=== PATIENT | female | born 1940 | race Caucasian/White ===

== ENCOUNTER 2019-08-23 17:24 | Emergency (ER) | payer MEDICAID ==
[2019-08-23 17:43] VITALS: BP 187/72
--- NOTE | 2019-08-23 17:57 | Event Note ---
ED Screening Note Date of service: 08/23/19 Time: 17:54 ED Screening Note: Pt complains of weakness, vomiting, and diarrhea x 2 days This initial assessment/diagnostic orders/clinical plan/treatment(s) is/are subject to change based on patients health status, clinical progression and re-assessment by fellow clinical providers in the ED. Further treatment and workup at subsequent clinical providers discretion. Patient/guardian urged not to elope from the ED as their condition may be serious if not clinically assessed and managed. Initial orders include: labs CXR rapid flu
--- NOTE | 2019-08-23 19:17 | XRay Report ---
CHEST 1 VIEW INDICATION: chest pain. COMPARISON: None. FINDINGS: Support devices: None. Heart: Normal. Lungs/Pleura: There is no consolidation, effusion, or pneumothorax. Mild increased reticular markings are noted. These may be chronic. Lower airways disease or interstitial edema could have this appeara nce. IMPRESSION: 1. Mild increased interstitial markings, see above. Signer Name: eTj Davila MD Signed: 08/23/2019 7:13 PM Workstation Name: [id number]
[2019-08-23 19:42] LABS: Basophils # (Auto) 0.2 K/mm3 (0.0-0.1); Basophils % (Auto) 2.1 % (0.0-1.8); Eosinophils # (Auto) 0.3 K/mm3 (0.0-0.4); Eosinophils % (Auto) 2.3 % (0.0-4.3); Hematocrit 34.2 % (30.3-42.9); Hemoglobin 11.3 gm/dl (10.1-14.3); Lymphocytes # (Auto) 2.6 K/mm3 (1.2-5.4); Lymphocytes % (Auto) 23.5 % (13.4-35.0); Mean Corpuscular HGB Conc 33 % (30-34); Mean Corpuscular Volume 75 fl (79-97); Monocytes # (Auto) 0.8 K/mm3 (0.0-0.8); Monocytes % (Auto) 7.4 % (0.0-7.3); Platelet Count 328 K/mm3 (140-440); Red Blood Count 4.57 M/mm3 (3.65-5.03); Red Cell Distribution Width 13.2 % (13.2-15.2)
[2019-08-23 20:05] LABS: Albumin 3.5 g/dL (3.9-5); BUN/Creatinine Ratio 27; Blood Urea Nitrogen 24 mg/dL (7-17); Calcium 8.7 mg/dL (8.4-10.2); Hemolysis Index 3
[2019-08-23 20:24] LABS: Alanine Aminotransferase < 5 units/L (7-56)
== END 2019-08-24 01:00 | disposition left against medical advice (07) ==
LOC: ED 17:24
DX: R19.7 Diarrhea, unspecified (principal); Z53.21 Procedure and treatment not carried out due to patient leaving prior to being seen by health care provider
CPT/HCPCS: 36415; 71045; 80053; 83690; 84484; 85025

== ENCOUNTER 2019-08-26 17:07 | Inpatient (IN) | payer MEDICAID ==
[2019-08-26 19:56] LABS: Basophils # (Auto) 0.1 K/mm3 (0.0-0.1); Basophils % (Auto) 1.2 % (0.0-1.8); Eosinophils # (Auto) 0.2 K/mm3 (0.0-0.4); Eosinophils % (Auto) 1.4 % (0.0-4.3); Hematocrit 34.6 % (30.3-42.9); Hemoglobin 11.7 gm/dl (10.1-14.3); Lymphocytes # (Auto) 2.6 K/mm3 (1.2-5.4); Lymphocytes % (Auto) 22.3 % (13.4-35.0); Mean Corpuscular HGB Conc 34 % (30-34); Mean Corpuscular Volume 74 fl (79-97); Monocytes # (Auto) 0.9 K/mm3 (0.0-0.8); Monocytes % (Auto) 7.2 % (0.0-7.3); Platelet Count 329 K/mm3 (140-440); Red Blood Count 4.66 M/mm3 (3.65-5.03); Red Cell Distribution Width 12.9 % (13.2-15.2)
--- NOTE | 2019-08-26 20:02 | XRay Report ---
CHEST 1 VIEW INDICATION: AMS. COMPARISON: 08/23/2019 FINDINGS: Support devices: None. Heart: Normal. Lungs/Pleura: No acute pulmonary or pleural findings. IMPRESSION: 1. No acute findings, lungs are clear. Signer Name: Tej Davila MD Signed: 08/26/2019 7:57 PM Workstation Name: [id number]
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
[2019-08-26 20:17] LABS: Albumin 3.6 g/dL (3.9-5); BUN/Creatinine Ratio 21; Blood Urea Nitrogen 17 mg/dL (7-17); Calcium 8.7 mg/dL (8.4-10.2); Hemolysis Index 4
[2019-08-26 20:19] LABS: Alanine Aminotransferase < 5 units/L (7-56); Bilirubin,Direct < 0.2 mg/dL (0-0.2)
--- NOTE | 2019-08-26 20:54 | Cat Scan Report ---
CT head/brain wo con INDICATION: AMS. TECHNIQUE: Routine CT head without contrast. All CT scans at this location are performed using CT dos e reduction for ALARA by means of automated exposure control. COMPARISON: None. FINDINGS: BRAIN / INTRACRANIAL CONTENTS: There is an area of cortical and subcortical hypoattenuation in the le ft middle and inferior frontal gyri suggestive of acute to subacute infarct. There is no associated h emorrhage or adverse mass effect. There is no acute hemorrhage, midline shift, or herniation. There i s no other acute abnormality. ORBITS: No significant abnormality of visualized orbits. SINUSES / MASTOIDS: No significant abnormality of visualized sinuses and mastoid air cells. ADDITIONAL FINDINGS: None. IMPRESSION: 1. Acute to early subacute infarct in the left middle and inferior frontal gyri without associated he morrhage or adverse mass effect. Findings discussed with Dr. Noble at 7:48 PM central time on 08/26/2019. Signer Name: Eren Sheikh MD Signed: 08/26/2019 8:49 PM Workstation Name: [id number]
[2019-08-26 21:44] LABS: Bacteria,Urine 2+ /HPF (Negative); Bilirubin,Urine NEG (Negative); Blood,Urine SM (Negative); Color,Urine Yellow (Yellow); Mucus,Urine FEW /HPF; Protein,Urine <15 mg/dL mg/dL (Negative); Urobilinogen,Urine < 2.0 mg/dL (<2.0)
[2019-08-26 21:50] LABS: Amphetamine Screen,Urine PRESUMPTIVE NEGATIVE; Benzodiazepines Screen,Urine PRESUMPTIVE NEGATIVE; Cannabinoid Screen,Urine PRESUMPTIVE NEGATIVE; Cocaine Screen,Urine PRESUMPTIVE NEGATIVE; Methadone Screen,Urine PRESUMPTIVE NEGATIVE; Opiate Screen,Urine PRESUMPTIVE NEGATIVE
[2019-08-26] MEDS ORDERED: cefTRIAXone/NS 1 GM/50 ML 1 GM/50 ML BAG IV ONE (22:02)
[2019-08-26] MEDS ORDERED: ASPIRIN 300 MG RECT SUPP PR ONE (22:35)
[2019-08-26] MEDS ORDERED: hydrALAZINE 20 MG/1 ML INJ ONE (23:00)
[2019-08-26] MEDS ORDERED: hydrALAZINE 20 MG/1 ML INJ IV ONE (23:06)
[2019-08-27] MEDS ORDERED: hydrALAZINE 20 MG/1 ML INJ IV PRN (00:28)
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
[2019-08-27] MEDS: POTASSIUM CHLORIDE 10 MEQ 10 MEQ/100 ML BAG IV SCH ×5 (01:14→07:27)
[2019-08-27] MEDS ORDERED: ONDANSETRON 4 MG/2 ML INJ IV PRN (01:27)
[2019-08-27] MEDS ORDERED: ACETAMINOPHEN 650 MG RECT SUPP PR PRN (01:27)
[2019-08-27] MEDS ORDERED: DEXTROSE 50% IN WATER (25GM) 50 ML SYRINGE IV PRN (01:46)
[2019-08-27] MEDS: INSULIN LISPRO 100 UNIT/ML SUB-Q SCH ×6 (04:09→21:19)
[2019-08-27] MEDS ORDERED: POTASSIUM CHLORIDE 10 MEQ 10 MEQ/100 ML BAG IV SCH (05:00)
[2019-08-27 09:35] LABS: Chol/HDL Ratio 4.86 %
[2019-08-27] MEDS: ENOXAPARIN 40 MG/0.4 ML INJ SUB-Q SCH (10:41)
[2019-08-27] MEDS: ASPIRIN 300 MG RECT SUPP PR SCH (10:42)
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
[2019-08-27] MEDS: POTASSIUM CHLORIDE ER 20 MEQ TAB PO SCH (17:02)
--- NOTE | 2019-08-27 17:27 | Consultation ---
History of Present Illness Consult date: 08/27/19 Reason for Consult: Right sided weakness, aphasia Chief complaint: Right sided weakness, aphasia History of present illness: Patient is a 78 y/o woman w/ a h/o HTN, DM, HLD. Yesterday, patient was noted to have difficulty walking and difficulty speaking, and was brought to [facility] for further evaluation. In the ER, patient was noted to have aphasia and right sided weakness. She lives with her boyfriend, who stated that he can no longer take care of her. CT head showed an acute left hemispheric stroke. Past History Past Medical History: other (HTN, DM, HLD) Social history: lives with family (boyfriend) Family history: no significant family history Medications and Allergies Allergies Allergy/AdvReac Type Severity Reaction Status Date / Time No Known Allergies Allergy Unverified 08/23/19 17:39 Active Meds: Active Medications Acetaminophen (Tylenol) 650 mg IN Q4H PRN PRN Reason: Pain, Mild (1-3) Aspirin (Aspirin) 300 mg IN QDAY [facility] Last Admin: 08/27/19 10:42 Dose: 300 mg Documented by: Dextrose (D50w (25gm) Syringe) 0 ml IV Q30MIN PRN; Protocol PRN Reason: Hypoglycemia Enoxaparin Sodium (Enoxaparin) 40 mg SUB-Q QDAY [facility] Last Admin: 08/27/19 10:41 Dose: 40 mg Documented by: Hydralazine HCl (Apresoline) 5 mg IV Q6H PRN PRN Reason: Hypertension Ceftriaxone Sodium (Rocephin/Ns 1 Gm/50 Ml) 1 gm in 50 mls @ 100 mls/hr IV Q 24HR AB; Protocol Insulin Human Lispro (Humalog) 0 unit SUB-Q Q4HR AB; Protocol Last Admin: 08/27/19 17:02 Dose: Not Given Documented by: Ondansetron HCl (Zofran) 4 mg IV Q4H PRN PRN Reason: Nausea And Vomiting Last Admin: 08/27/19 13:45 Dose: 4 mg Documented by: Potassium Chloride (K-Dur) 40 meq PO QDAY AB Last Admin: 08/27/19 17:02 Dose: Not Given Documented by: Sodium Chloride (Sodium Chloride Flush Syringe 10 Ml) 10 ml IV PRN PRN PRN Reason: LINE FLUSH Review of Systems ROS unobtainable: due to mental status (aphasia) Physical Examination - Vital Signs Vital Signs: Vital Signs Temp Pulse Resp BP Pulse Ox 98.7 F 69 16 167/65 99 08/26/19 17:58 08/26/19 17:58 08/26/19 17:58 08/26/19 17:58 08/26/19 17:58 - Physical Exam Narrative exam: Patient is awake, alert, nonverbal, follows 1-step commands. Noted to have severe aphasia and is nonverbal. PERRL, EOMI, VFF, right lower facial weakness noted, bilaterally intact light touch, tongue midline. 1/5 strength in RUE/RLE, 5/5 in LUE/LLE. W/d to pain in all extremities. Unable to perform FTN or HTN due to weakness and unable to follow complex commands. 2+ reflexes throughout. - Constitutional General appearance: comfortable - EENT EENT: Present: ATNC, PERRL, mucous membranes moist - Respiratory Respiratory: Present: lungs clear, normal breath sounds - Cardiovascular Cardiovascular: Present: regular rate, normal S1, normal S2 Extremities: Present: no clubbing, cyanosis, no inflammation - Gastrointestinal Gastrointestinal: Present: normoactive bowel sounds, soft, non-tender - Integumentary Integumentary: Present: normal - Musculoskeletal Musculoskeletal: Present: no fluid collection, no pain - Psychiatric Psychiatric: Present: mood/affect appropriate - Level of Consciousness 1a. Level of Consciousness: alert/keenly responsive - LOC Questions 1b. LOC Questions: aphasic - LOC Command 1c. LOC Commands: performs 1 task correctly - Best Gaze 2. Best Gaze: normal - Visual 3. Visual: no visual loss - Facial Palsy 4. Facial Palsy: partial paralysis - Motor Arm 5a. Motor Arm Left: no drift 5b. Motor Arm Right: no gravity effort - Motor Leg 6a. Motor Leg Left: no drift 6b. Motor Leg Right: no gravity effort - Limb Ataxia 7. Limb Ataxia: absent - Sensory 8. Sensory: normal - Best Language 9. Best Language: mute/global aphasia - Dysarthria 10. Dysarthria: mute/anarrthric - Extinction and Inattention 11. Extinction/Inattention: no abnormality - Scoring Total Score: 16 Stroke Severity: Moderate to Severe Stroke Results - Laboratory Findings CBC and BMP: 08/26/19 19:42 08/26/19 19:42 Abnormal Lab Findings: Abnormal Labs 08/26/19 08/26/19 08/26/19 19:42 19:42 21:28 WBC 11.9 H MCV 74 L MCH 25 L RDW 12.9 L [place] # 0.9 H Seg Neutrophils # 8.1 H Potassium 3.1 L Chloride 107.9 H Carbon Dioxide 19 L Glucose 126 H POC Glucose ALT < 5 L Albumin 3.6 L Cholesterol LDL Cholesterol Direct Urine WBC (Auto) 26.0 H 08/27/19 08/27/19 08/27/19 03:19 05:47 07:47 WBC MCV MCH RDW [place] # Seg Neutrophils # Potassium Chloride Carbon Dioxide Glucose POC Glucose 221 H 200 H ALT Albumin Cholesterol 243 H LDL Cholesterol Direct 185 H Urine WBC (Auto) 08/27/19 08/27/19 08:00 11:26 WBC MCV MCH RDW [place] # Seg Neutrophils # Potassium Chloride Carbon Dioxide Glucose POC Glucose 137 H 132 H ALT Albumin Cholesterol LDL Cholesterol Direct Urine WBC (Auto) Assessment and Plan Patient is a 78 y/o woman w/ a h/o HTN, DM, HLD, who p/w right sided weakness and aphasia. According to the patient's clinical findings, she has had an acute ischemic stroke. Plan: 1. Stroke: - MRI pending - CT head showed Lt. hemisphere acute infarct - Check MRA head/neck - Echo: EF 60-65%, bubble study negative. - Cont. ASA - Cont. statin. LDL 84. Goal LDL <70. - PT/OT/ST - DVT Ppx: recommend lovenox - Recommend cardiology consult to rule out possible A-fib, as was noted on telemetry. 2. Hypertension: - Recommend BP target of <220/120 for next 24 hours to allow for permissive HTN. 3. UTI: - Cont. to treat per primary team - Will continue to monitor patient. Thank you for allowing me to take part in the care of this patient. Ar Zepeda MD Neurology
[2019-08-27] MEDS: cefTRIAXone/NS 1 GM/50 ML 1 GM/50 ML BAG IV SCH (18:13)
[2019-08-28] MEDS: INSULIN LISPRO 100 UNIT/ML SUB-Q SCH ×5 (02:19→22:07)
[2019-08-28 10:16] LABS: Calcium 9.3 mg/dL (8.4-10.2)
[2019-08-28] MEDS: ASPIRIN 300 MG RECT SUPP PR SCH (10:31)
[2019-08-28] MEDS: cefTRIAXone/NS 1 GM/50 ML 1 GM/50 ML BAG IV SCH (10:31)
[2019-08-28] MEDS: ENOXAPARIN 40 MG/0.4 ML INJ SUB-Q SCH (10:31)
[2019-08-28] MEDS: POTASSIUM CHLORIDE ER 20 MEQ TAB PO SCH ×2 (10:51→10:59)
--- NOTE | 2019-08-28 14:16 | Magnetic Resonance Report ---
MRI BRAIN WITHOUT CONTRAST, MRA HEAD WITHOUT CONTRAST INDICATION / CLINICAL INFORMATION: Right-sided weakness and aphasia. TECHNIQUE: Multiplanar, multi sequential MRI images of the brain. Routine MRA of the head is performed. 3-D/MIP reformats postprocessed. COMPARISON: Head CT on 08/26/2019. FINDINGS: MR BRAIN: BRAIN / INTRACRANIAL CONTENTS: There is associated diffusion consistent with acute infarct in the lef t MCA territory involving the left frontal and anterior parietal cortex and left insular cortex. Most of the temporal cortex is not involved. There is no associated hemorrhage or significant adverse mas s effect at this time. There is no other acute infarct. Ventricular and cisternal size otherwise appe ars normal for age. CRANIOCERVICAL JUNCTION: No significant abnormality. ORBITS: No significant abnormality of visualized orbits. SINUSES / MASTOIDS: No significant abnormality of visualized sinuses and mastoid air cells. ADDITIONAL FINDINGS: None. MRA HEAD: Intracranial vertebral arteries: There is development of dominant of the right vertebral artery. Basilar artery: No significant abnormality. Posterior cerebral arteries: There is origin of the right posterior cerebral artery. Intracranial internal carotid arteries: No flow is visualized throughout the left internal carotid ar jolie. Right intracranial internal carotid artery appears normal. Anterior cerebral arteries: No significant abnormality. Middle cerebral arteries: There is no flow visualized in the left middle cerebral artery. Right middl e cerebral artery appears normal. Additional findings: None. IMPRESSION: 1. Acute infarct involving much of the left MCA territory including the left insular cortex and left frontal and parietal lobes. No associated hemorrhage or adverse mass effect. 2. No flow visualized in the left internal carotid artery or the left MCA intracranially. The left AC A appears opacified, likely from collateral flow from the anterior communicating artery. Signer Name: Eren Sheikh MD Signed: 08/28/2019 2:12 PM Workstation Name: [id number]
--- NOTE | 2019-08-28 15:19 | Progress Note ---
Assessment and Plan Patient is a 78 y/o woman w/ a h/o HTN, DM, HLD, who p/w right sided weakness and aphasia. According to the patient's clinical findings, she has had an acute ischemic stroke. Plan: 1. Stroke: - MRI brain: shows large Left MCA territory stroke - CT head showed Lt. hemisphere acute infarct - MRA head/neck: occlusion of LICA noted on MRA neck. No flow in intracranial LICA or Lt. MCA. - Echo: EF 60-65%, bubble study negative. - Cont. ASA - Cont. statin. LDL 84. Goal LDL <70. - PT/OT/ST - DVT Ppx: recommend lovenox - Recommend cardiology consult to rule out possible A-fib, as was noted on telemetry. 2. Hypertension: - Recommend target normotension. 3. UTI: - Cont. to treat per primary team - Will continue to monitor patient. Thank you for allowing me to take part in the care of this patient. Ar Zepeda MD Neurology Subjective Date of service: 08/28/19 Principal diagnosis: Acute CVA Interval history: No acute events overnight. Objective - Exam Narrative Exam: Patient is awake, alert, nonverbal, follows 1-step commands. Noted to have severe aphasia and is nonverbal. PERRL, EOMI, Rt. HH, right lower facial weakness noted, bilaterally intact light touch, tongue midline. 1/5 strength in RUE/RLE, 5/5 in LUE/LLE. W/d to pain in all extremities. Unable to perform FTN or HTN due to weakness and unable to follow complex commands. 2+ reflexes throughout. - Vital Sign Vital Signs - 12hr 08/28/19 08/28/19 08/28/19 04:53 07:47 09:08 Temperature 97.8 F 100.1 F H Pulse Rate 70 69 74 Respiratory 18 16 Rate Blood Pressure 183/70 172/66 O2 Sat by Pulse 92 98 Oximetry - General Apperance Constitutional: uncomfortable - EENT EENT: ATNC, PERRL, mucous membranes moist - Respiratory Respiratory: lungs clear, normal breath sounds - Cardiovascular Cardiovascular: regular rate, normal S1, normal S2 Extremities: no clubbing, cyanosis, no inflammation - Gastrointestinal Gastrointestinal: normoactive bowel sounds, soft, non-tender - Integumentary Integumentary: normal - Laboratory Findings CBC and BMP: 08/26/19 19:42 08/28/19 08:32 Abnormal Lab Findings: Abnormal Labs 08/26/19 08/26/19 08/26/19 19:42 19:42 21:28 WBC 11.9 H MCV 74 L MCH 25 L RDW 12.9 L [place] # 0.9 H Seg Neutrophils # 8.1 H Potassium 3.1 L Chloride 107.9 H Carbon Dioxide 19 L BUN Glucose 126 H POC Glucose ALT < 5 L Albumin 3.6 L Cholesterol LDL Cholesterol Direct Urine WBC (Auto) 26.0 H 08/27/19 08/27/19 08/27/19 03:19 05:47 07:47 WBC MCV MCH RDW [place] # Seg Neutrophils # Potassium Chloride Carbon Dioxide BUN Glucose POC Glucose 221 H 200 H ALT Albumin Cholesterol 243 H LDL Cholesterol Direct 185 H Urine WBC (Auto) 08/27/19 08/27/19 08/27/19 08:00 11:26 16:44 WBC MCV MCH RDW [place] # Seg Neutrophils # Potassium Chloride Carbon Dioxide BUN Glucose POC Glucose 137 H 132 H 133 H ALT Albumin Cholesterol LDL Cholesterol Direct Urine WBC (Auto) 08/27/19 08/28/19 08/28/19 23:15 07:43 08:32 WBC MCV MCH RDW [place] # Seg Neutrophils # Potassium Chloride Carbon Dioxide 17 L BUN 29 H Glucose 120 H POC Glucose 138 H 134 H ALT Albumin Cholesterol LDL Cholesterol Direct Urine WBC (Auto)
--- NOTE | 2019-08-28 15:37 | Consultation ---
History of Present Illness Consult date: 08/28/19 Requesting physician: AISHA METZGER Consult reason: arrhythmia History of present illness: The patient is a 78 y/o female with a past medical history of HTN, DM, HLD. She is withdrawn and nonverbal on evaluation and thus HPI is obtained per the chart. Pt was noted to have difficulty walking and difficulty speaking, and was brought to [facility] for further evaluation. In the ER, patient was noted to have aphasia and right sided weakness. She lives with her boyfriend, who stated that he can no longer take care of her. Head CT shows left hemisphere acute infarct MRI brain shows large Left MCA territory stroke. 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 Pt was note d to have arrhythmia on telemetry and thus cardiology has been consulted. ECGs and telemetry reviewed - pt noted to have one bout of apparent paroxysmal atrial tachycardia, otherwise NSR. Echo done yesterday showed EF 60-65%, impaired relaxation, negative bubble study. Past History Past Medical History: diabetes, hypertension, hyperlipidemia Social history: lives with family (boyfriend) Family history: no significant family history Medications and Allergies Allergies Allergy/AdvReac Type Severity Reaction Status Date / Time No Known Allergies Allergy Unverified 08/23/19 17:39 Active Meds: Active Medications Acetaminophen (Tylenol) 650 mg MA Q4H PRN PRN Reason: Pain, Mild (1-3) Aspirin (Aspirin) 300 mg MA QDAY [facility] Last Admin: 08/28/19 10:31 Dose: 300 mg Documented by: Dextrose (D50w (25gm) Syringe) 0 ml IV Q30MIN PRN; Protocol PRN Reason: Hypoglycemia Enoxaparin Sodium (Enoxaparin) 40 mg SUB-Q QDAY AB Last Admin: 08/28/19 10:31 Dose: 40 mg Documented by: Hydralazine HCl (Apresoline) 5 mg IV Q6H PRN PRN Reason: Hypertension Ceftriaxone Sodium (Rocephin/Ns 1 Gm/50 Ml) 1 gm in 50 mls @ 100 mls/hr IV Q24HR AB; Protocol Last Admin: 08/28/19 10:31 Dose: 100 mls/hr Documented by: Insulin Human Lispro (Humalog) 0 unit SUB-Q Q4HR AB; Protocol Last Admin: 08/28/19 14:00 Dose: Not Given Documented by: Ondansetron HCl (Zofran) 4 mg IV Q4H PRN PRN Reason: Nausea And Vomiting Last Admin: 08/27/19 13:45 Dose: 4 mg Documented by: Potassium Chloride (K-Dur) 40 meq PO QDAY [facility] Last Admin: 08/28/19 10:59 Dose: 40 meq Documented by: Sodium Chloride (Sodium Chloride Flush Syringe 10 Ml) 10 ml IV PRN PRN PRN Reason: LINE FLUSH Review of Systems ROS unobtainable: due to mental status Physical Examination Vital Signs Temp Pulse Resp BP Pulse Ox 98.7 F 69 16 167/65 99 08/26/19 17:58 08/26/19 17:58 08/26/19 17:58 08/26/19 17:58 08/26/19 17:58 General appearance: no acute distress HEENT: Positive: PERRL, Normocephaly, Mucus Membranes Moist Neck: Positive: neck supple, trachea midline Cardiac: Positive: Reg Rate and Rhythm, S1/S2 Lungs: Positive: Decreased Breath Sounds Neuro: Positive: Other (opens eyes, will not follow any other commands) Abdomen: Negative: Tender Skin: Negative: Rash Musculoskeletal: No Pain Extremities: Absent: edema Results 08/26/19 19:42 08/28/19 08:32 Comprehensive Metabolic Panel 08/28/19 Range/Units 08:32 Sodium 143 (137-145) mmol/L Potassium 4.1 D (3.6-5.0) mmol/L Chloride 106.6 (98-107) mmol/L Carbon Dioxide 17 L (22-30) mmol/L BUN 29 H (7-17) mg/dL Creatinine 1.2 (0.7-1.2) mg/dL Glucose 120 H (65-100) mg/dL Calcium 9.3 (8.4-10.2) mg/dL - Imaging and Cardiology Echo: report reviewed (Echo done yesterday showed EF 60-65%, impaired re laxation, negative bubble study. ) EKG: report reviewed, image reviewed EKG interpretations - Telemetry EKG Rhythm: Sinus Rhythm - EKG Sinus rhythms and dysrhythmias: sinus rhythm Assessment and Plan Pt presented with acute ischemic CVA - head CT shows left hemisphere acute infarct MRI brain shows large Left MCA territory stroke. 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 ECGs and telemetry reviewed - pt noted to have one bout of apparent paroxysmal atrial tachycardia, otherwise NSR. TTE reviewed. Obtain thyroid profile. Optimize BPs and HR - initiate PO lopressor. Pt was cleared by speech therapy for mechanical soft diet starting today. Initiate statin in setting of HLP. Cont to observe on telemetry. Further recs to follow per hospital course. The patient has been seen in conjunction with Dr. Loera who agrees with the assessment and plan of care. - Patient Problems (1) Acute CVA (cerebrovascular accident) Current Visit: Yes Status: Acute (2) Paroxysmal atrial tachycardia Current Visit: Yes Status: Acute (3) HTN (hypertension) Current Visit: Yes Status: Chronic Qualifiers: Hypertension type: essential hypertension Qualified Code(s): I10 - Essential (primary) hypertension (4) Diabetes Current Visit: Yes Status: Chronic (5) Hyperlipidemia Current Visit: Yes Status: Chronic (6) UTI (urinary tract infection) Current Visit: Yes Status: Acute Qualifiers: Urinary tract infection type: acute cystitis
--- NOTE | 2019-08-28 16:48 | Magnetic Resonance Report ---
MRA NECK WITHOUT CONTRAST HISTORY: Stroke, right-sided weakness. COMPARISON: None. TECHNIQUE: Routine MRA of the neck is performed. 3-D/MIP reformats postprocessed. Percentage stenosi s is determined by direct quantitative measurements of distal internal carotid artery diameter compar ed with normal reference segments or by criteria similar to NASCET where applicable. CONTRAST: None. FINDINGS: Aortic arch: No significant abnormality. Cervical vertebral arteries: The right vertebral artery is development of a dominant. There are multi ple levels of loss of flow signal in the left vertebral artery in the mid and upper neck with apparen t reconstitution intracranially. Common carotid arteries: No significant abnormality. Cervical internal carotid arteries: There is a complete occlusion of the left internal carotid artery from its origin. There is moderate approximately 50-60% stenosis of the proximal right cervical internal carotid arter y. Additional findings: None. IMPRESSION: 1. 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 2. Moderate 50-60% stenosis of the proximal right cervical internal carotid artery. 3. Multiple levels of loss of flow signal in the left vertebral artery in the neck with reconstitutio n intracranially. Signer Name: Eren Sheikh MD Signed: 08/28/2019 4:43 PM Workstation Name: [id number]
--- NOTE | 2019-08-28 19:26 | Progress Note ---
Assessment and Plan Assessment and plan: 78-year-old [place]guillan speaking woman was brought to the emergency room for evaluation. Patient has history of hypertension, diabetes, hyperlipidemia, has not taken her medication in over 2 years or seen a physician. She was noted to have right-sided weakness and was aphasic and was brought to the emergency room by her family. Triage sheet stated that the boyfriend stated he is unable to care for the patient anymore. A review of systems unobtainable. Patient was found to have an acute CVA. Also Rt Hemiplegia (1) CVA (cerebral vascular accident) Current Visit: Yes Status: Acute Qualifiers: Laterality of affected vessel: left Plan to address problem: CVA w/u in progress head CT shows left hemisphere acute infarct MRI brain shows large Left MCA territory stroke. 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 ECGs and telemetry reviewed - pt noted to have one bout of apparent paroxysmal atrial tachycardia, otherwise NSR. TTE reviewed. Obtain thyroid profile. Optimize BPs and HR - initiate PO lopressor. (2) Hypokalemia Current Visit: Yes Status: Acute Plan to address problem: Supplemented (3) UTI (urinary tract infection) Current Visit: Yes Status: Acute Qualifiers: Urinary tract infection type: acute cystitis Plan to address problem: On IV abx (4) HTN (hypertension) Current Visit: Yes Status: Chronic Qualifiers: Hypertension type: essential hypertension Qualified Code(s): I10 - Essential (primary) hypertension Plan to address problem: Initiated on Losartan 25 mg po qd (5) DVT prophylaxis Current Visit: Yes Status: Acute Plan to address problem: On Heparin and GI prophylaxis Can discharge tomorrow if tolerating PO and based on rehab needs. History Interval history: Patient seen and examined, resting comfortable, no new distress Hospitalist Physical - Physical exam Narrative exam: General appearance: Present: no acute distress, well-nourished - EENT Eyes: PERRL, EOM intact ENT: hearing intact, clear oral mucosa Ears: bilateral: normal - Neck Neck: supple, normal ROM - Respiratory Respiratory effort: normal Respiratory: bilateral: CTA - Breasts Breasts: normal - Cardiovascular Heart rate: 78 Rhythm: regular Heart Sounds: Present: S1 & S2. Absent: gallop, rub Extremities: pulses intact, No edema, normal color, Full ROM - Gastrointestinal General gastrointestinal: Present: soft, non-tender, non-distended, normal bowel sounds - Genitourinary Female genitourinary: normal - Integumentary Integumentary: clear, warm, dry - Musculoskeletal Musculoskeletal: right sided weakness - Neurologic Neurologic: moves all extremities - Psychiatric Psychiatric: memory intact, appropriate mood/affect, intact judgment & insight - Allied health notes Allied health notes reviewed: nursing - Constitutional Vitals: Temp Pulse Resp BP Pulse Ox 98.8 F 87 20 161/80 95 08/28/19 16:27 08/28/19 18:17 08/28/19 18:17 08/28/19 18:17 08/28/19 16:27 General appearance: Present: no acute distress Results - Labs CBC & Chem 7: 08/26/19 19:42 08/28/19 08:32 Labs: Laboratory Last Values WBC 11.9 K/mm3 (4.5-11.0) H 08/26/19 19:42 RBC 4.66 M/mm3 (3.65-5.03) 08/26/19 19:42 Hgb 11.7 gm/dl (10.1-14.3) 08/26/19 19:42 Hct 34.6 % (30.3-42.9) 08/26/19 19:42 MCV 74 fl (79-97) L 08/26/19 19:42 MCH 25 pg (28-32) L 08/26/19 19:42 MCHC 34 % (30-34) 08/26/19 19:42 RDW 12.9 % (13.2-15.2) L 08/26/19 19:42 Plt Count 329 K/mm3 (140-440) 08/26/19 19:42 Lymph % (Auto) 22.3 % (13.4-35.0) 08/26/19 19:42 [place] % (Auto) 7.2 % (0.0-7.3) 08/26/19 19:42 Eos % (Auto) 1.4 % (0.0-4.3) 08/26/19 19:42 Baso % (Auto) 1.2 % (0.0-1.8) 08/26/19 19:42 Lymph # 2.6 K/mm3 (1.2-5.4) 08/26/19 19:42 [place] # 0.9 K/mm3 (0.0-0.8) H 08/26/19 19:42 Eos # 0.2 K/mm3 (0.0-0.4) 08/26/19 19:42 Baso # 0.1 K/mm3 (0.0-0.1) 08/26/19 19:42 Seg Neutrophils % 67.9 % (40.0-70.0) 08/26/19 19:42 Seg Neutrophils # 8.1 K/mm3 (1.8-7.7) H 08/26/19 19:42 Sodium 143 mmol/L (137-145) 08/28/19 08:32 Potassium 4.1 mmol/L (3.6-5.0) D 08/28/19 08:32 Chloride 106.6 mmol/L (98-107) 08/28/19 08:32 Carbon Dioxide 17 mmol/L (22-30) L 08/28/19 08:32 Anion Gap 24 mmol/L 08/28/19 08:32 BUN 29 mg/dL (7-17) H 08/28/19 08:32 Creatinine 1.2 mg/dL (0.7-1.2) 08/28/19 08:32 Estimated GFR 44 ml/min 08/28/19 08:32 BUN/Creatinine Ratio 24 % 08/28/19 08:32 Glucose 120 mg/dL (65-100) H 08/28/19 08:32 POC Glucose 110 (70-105) H 08/28/19 16:31 Calcium 9.3 mg/dL (8.4-10.2) 08/28/19 08:32 Total Bilirubin 0.30 mg/dL (0.1-1.2) 08/26/19 19:42 Direct Bilirubin < 0.2 mg/dL (0-0.2) 08/26/19 19:42 Indirect Bilirubin 0.1 mg/dL 08/26/19 19:42 AST 18 units/L (5-40) 08/26/19 19:42 ALT < 5 units/L (7-56) L 08/26/19 19:42 Alkaline Phosphatase 104 units/L (35-129) 08/26/19 19:42 Total Protein 7.8 g/dL (6.3-8.2) 08/26/19 19:42 Albumin 3.6 g/dL (3.9-5) L 08/26/19 19:42 Albumin/Globulin Ratio 0.9 % 08/26/19 19:42 Triglycerides 77 mg/dL (2-149) 08/27/19 07:47 Cholesterol 243 mg/dL (50-199) H 08/27/19 07:47 LDL Cholesterol Direct 185 mg/dL (50-130) H 08/27/19 07:47 HDL Cholesterol 50 mg/dL (40-59) 08/27/19 07:47 Cholesterol/HDL Ratio 4.86 % 08/27/19 07:47 Urine Color Yellow (Yellow) 08/26/19 21:28 Urine Turbidity Slightly-cloudy (Clear) 08/26/19 21:28 Urine pH 6.0 (5.0-7.0) 08/26/19 21:28 Ur Specific [place] 1.011 (1.003-1.030) 08/26/19 21:28 Urine Protein <15 mg/dl mg/dL (Negative) 08/26/19 21:28 Urine Glucose (UA) Neg mg/dL (Negative) 08/26/19 21:28 Urine Ketones Neg mg/dL (Negative) 08/26/19 21:28 Urine Blood Sm (Negative) 08/26/19 21:28 Urine Nitrite Pos (Negative) 08/26/19 21:28 Urine Bilirubin Neg (Negative) 08/26/19 21:28 Urine Urobilinogen < 2.0 mg/dL (<2.0) 08/26/19 21:28 Ur Leukocyte Esterase Mod (Negative) 08/26/19 21:28 Urine WBC (Auto) 26.0 /HPF (0.0-6.0) H 08/26/19 21:28 Urine RBC (Auto) 5.0 /HPF (0.0-6.0) 08/26/19 21:28 U Epithel Cells (Auto) < 1.0 /HPF (0-13.0) 08/26/19 21:28 Urine Bacteria (Auto) 2+ /HPF (Negative) 08/26/19 21:28 Urine Mucus Few /HPF 08/26/19 21:28 Urine Yeast (Budding) 1+ /HPF 08/26/19 21:28 Urine Opiates Screen Presumptive negative 08/26/19 21:28 Urine Methadone Screen Presumptive negative 08/26/19 21:28 Ur Barbiturates Screen Presumptive negative 08/26/19 21:28 Ur Phencyclidine Scrn Presumptive negative 08/26/19 21:28 Ur Amphetamines Screen Presumptive negative 08/26/19 21:28 U Benzodiazepines Scrn Presumptive negative 08/26/19 21:28 Urine Cocaine Screen Presumptive negative 08/26/19 21:28 U Marijuana (THC) Screen Presumptive negative 08/26/19 21:28 Drugs of Abuse Note Disclamer 08/26/19 21:28 Plasma/Serum Alcohol < 0.01 % (0-0.07) 08/26/19 19:42 Active Medications - Current Medications Current Medications: Generic Name Dose Route Start Last Admin Trade Name Freq PRN Reason Stop Dose Admin Acetaminophen 650 mg 08/27/19 01:27 Tylenol MS Q4H PRN Pain, Mild (1-3) Aspirin 300 mg 08/27/19 10:00 08/28/19 10:31 Aspirin MS 300 mg QDAY AB Administration Atorvastatin Calcium 20 mg 08/28/19 22:00 Lipitor PO QHS AB Dextrose 0 ml 08/27/19 01:46 D50w (25gm) Syringe IV Q30MIN PRN Hypoglycemia Protocol Enoxaparin Sodium 40 mg 08/27/19 10:00 08/28/19 10:31 Enoxaparin SUB-Q 40 mg QDAY AB Administration Ceftriaxone Sodium 1 gm in 50 mls @ 100 mls/hr 08/27/19 10:00 08/28/19 10:31 Rocephin/Ns 1 Gm/50 Ml IV 100 mls/hr Q24HR AB Administration Protocol Insulin Human Lispro 0 unit 08/27/19 02:00 08/28/19 14:00 Humalog SUB-Q Not Given Q4HR [facility] Protocol Metoprolol Tartrate 25 mg 08/28/19 22:00 Metoprolol PO BID AB Ondansetron HCl 4 mg 08/27/19 01:27 08/27/19 13:45 Zofran IV 4 mg Q4H PRN Administration Nausea And Vomiting Potassium Chloride 40 meq 08/27/19 16:00 08/28/19 10:59 K-Dur PO 40 meq QDAY AB Administration Sodium Chloride 10 ml 08/27/19 01:27 Sodium Chloride Flush Syringe 10 Ml IV PRN PRN LINE FLUSH
[2019-08-28] MEDS ORDERED: METOPROLOL TARTRATE 25 MG TAB PO SCH (22:00)
[2019-08-29] MEDS: INSULIN LISPRO 100 UNIT/ML SUB-Q SCH ×7 (01:08→22:02)
--- NOTE | 2019-08-29 11:27 | Progress Note ---
Assessment and Plan Pt presented with acute ischemic CVA - head CT shows left hemisphere acute infarct MRI brain shows large Left MCA territory stroke. 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 ECGs and telemetry reviewed - pt noted to have one bout of apparent paroxysmal atrial tachycardia, otherwise NSR. No current indication for initiation of systemic AC as no AFib has been visualized. Optimize BPs and HR - increase PO lopressor. Cont to observe on telemetry. Nothing further to add from cardiac perspective at this time. Will follow on as needed basis. The patient has been seen in conjunction with Dr. Loera who agrees with the assessment and plan of care. - Patient Problems (1) Acute CVA (cerebrovascular accident) Current Visit: Yes Status: Acute (2) Paroxysmal atrial tachycardia Current Visit: Yes Status: Acute (3) HTN (hypertension) Current Visit: Yes Status: Chronic Qualifiers: Hypertension type: essential hypertension Qualified Code(s): I10 - Essential (primary) hypertension (4) Diabetes Current Visit: Yes Status: Chronic (5) Hyperlipidemia Current Visit: Yes Status: Chronic (6) UTI (urinary tract infection) Current Visit: Yes Status: Acute Qualifiers: Urinary tract infection type: acute cystitis Subjective Date of service: 08/29/19 Principal diagnosis: Acute CVA Interval history: pt resting in bed, alert, nonverbal, no apparent distress. in SR on tele with no arrhythmias noted overnight. Objective Last Vital Signs Temp 98.3 F 08/28/19 23:26 Pulse 77 08/28/19 19:46 Resp 18 08/28/19 23:26 BP 151/71 08/28/19 23:26 Pulse Ox 96 08/28/19 19:46 - Physical Examination General: No Apparent Distress HEENT: Positive: PERRL, Normocephaly, Mucus Membranes Moist Neck: Positive: neck supple, trachea midline Cardiac: Positive: Reg Rate and Rhythm, S1/S2 Lungs: Positive: Decreased Breath Sounds Neuro: Positive: Other (opens eyes, will not follow any other commands) Abdomen: Negative: Tender Skin: Negative: Rash Musculoskeletal: No Pain Extremities: Absent: edema - Imaging and Cardiology EKG: report reviewed, image reviewed Echo: report reviewed (Echo done yesterday showed EF 60-65%, impaired relaxation, negative bubble study. ) - EKG Sinus rhythms and dysrhythmias: sinus rhythm
--- NOTE | 2019-08-29 13:15 | Consultation ---
History of Present Illness - Reason for Consult Consult date: 08/26/19 Stroke - History of Present Illness [facility] Brief consult note Called by Dr. Noble in the ED and discussed case over phone. Patient was last seen normal 2 days prior and was dropped off by significant other because patient was not moving the right side or speaking clearly for a few days. CT Brain already showed large stroke. Discussed plan to admit patient for MRI and further imaging and to avoid labile blood pressures to reduce risk of bleed. Past History Past Medical History: diabetes, hypertension, hyperlipidemia Social history: lives with family (boyfriend) Family history: no significant family history Medications and Allergies Allergies Allergy/AdvReac Type Severity Reaction Status Date / Time No Known Allergies Allergy Unverified 08/23/19 17:39 Active Meds: Active Medications Acetaminophen (Tylenol) 650 mg NM Q4H PRN PRN Reason: Pain, Mild (1-3) Aspirin (Aspirin) 300 mg NM QDAY [facility] Last Admin: 08/28/19 10:31 Dose: 300 mg Documented by: Atorvastatin Calcium (Lipitor) 40 mg PO QHS [facility] Last Admin: 08/28/19 21:43 Dose: 40 mg Documented by: Dextrose (D50w (25gm) Syringe) 0 ml IV Q30MIN PRN; Protocol PRN Reason: Hypoglycemia Enoxaparin Sodium (Enoxaparin) 40 mg SUB-Q QDAY [facility] Last Admin: 08/28/19 10:31 Dose: 40 mg Documented by: Ceftriaxone Sodium (Rocephin/Ns 1 Gm/50 Ml) 1 gm in 50 mls @ 100 mls/hr IV Q24HR [facility]; Protocol Last Admin: 08/28/19 10:31 Dose: 100 mls/hr Documented by: Insulin Human Lispro (Humalog) 0 unit SUB-Q Q4HR [facility]; Protocol Last Admin: 08/29/19 05:22 Dose: Not Given Documented by: Metoprolol Tartrate (Metoprolol) 50 mg PO BID [facility] Ondansetron HCl (Zofran) 4 mg IV Q4H PRN PRN Reason: Nausea And Vomiting Last Admin: 08/27/19 13:45 Dose: 4 mg Documented by: Potassium Chloride (K-Dur) 40 meq PO QDAY [facility] Last Admin: 08/28/19 10:59 Dose: 40 meq Documented by: Sodium Chloride (Sodium Chloride Flush Syringe 10 Ml) 10 ml IV PRN PRN PRN Reason: LINE FLUSH Exam - Constitutional Vitals: Temp Pulse Resp BP Pulse Ox 98.2 F 73 18 152/80 96 08/29/19 08:11 08/29/19 10:00 08/29/19 08:11 08/29/19 08:11 08/28/19 19:46 Results - Labs CBC & Chem 7: 08/26/19 19:42 08/28/19 08:32 Labs: Abnormal lab results 08/28/19 08/28/19 08/28/19 Range/Units 16:31 21:06 23:38 POC Glucose 110 H 160 H 163 H (70-105) 08/29/19 Range/Units 04:40 POC Glucose 162 H (70-105)
--- NOTE | 2019-08-29 16:09 | Progress Note ---
Assessment and Plan Patient is a 78 y/o woman w/ a h/o HTN, DM, HLD, who p/w right sided weakness and aphasia. According to the patient's clinical findings, she has had an acute ischemic stroke. Plan: 1. Stroke: - MRI brain: shows large Left MCA territory stroke - CT head showed Lt. hemisphere acute infarct - MRA head/neck: occlusion of LICA noted on MRA neck. No flow in intracranial LICA or Lt. MCA. - Echo: EF 60-65%, bubble study negative. - Cont. ASA - Cont. statin. LDL 84. Goal LDL <70. - PT/OT/ST - DVT Ppx: recommend lovenox - Cardiology following patient. Paroxysmal a-tach noted on telemetry, however no afib. 2. Hypertension: - Recommend target normotension. 3. UTI: - Cont. to treat per primary team - Will sign off as I am not covering neurology service over the weekend. Re commend to consult neurologist covering service over the weekend for further neurologic monitoring and management. Thank you for allowing me to take part in the care of this patient. Ar Zepeda MD Neurology Subjective Date of service: 08/29/19 Principal diagnosis: Acute CVA Interval history: No acute events overnight. Objective - Exam Narrative Exam: Patient is awake, alert, nonverbal, follows 1-step commands. Noted to have severe aphasia and is nonverbal. PERRL, EOMI, Rt. HH, right lower facial weakness noted, bilaterally intact light touch, tongue midline. 1/5 strength in RUE/RLE, 5/5 in LUE/LLE. W/d to pain in all extremities. Unable to perform FTN or HTN due to weakness and unable to follow complex commands. 2+ reflexes throughout. - Vital Sign Vital Signs - 12hr 08/29/19 08/29/19 08/29/19 04:23 08:11 10:00 Temperature 98.0 F 98.2 F Pulse Rate 73 Respiratory 18 18 Rate Blood Pressure 176/68 152/80 O2 Sat by Pulse Oximetry 08/29/19 12:42 Temperature Pulse Rate 79 Respiratory Rate Blood Pressure 149/67 O2 Sat by Pulse 99 Oximetry - General Apperance Constitutional: uncomfortable - EENT EENT: ATNC, PERRL, mucous membranes moist - Respiratory Respiratory: lungs clear, normal breath sounds - Cardiovascular Cardiovascular: regular rate, normal S1, normal S2 Extremities: no clubbing, cyanosis, no inflammation - Gastrointestinal Gastrointestinal: normoactive bowel sounds, soft, non-tender - Integumentary Integumentary: normal - Laboratory Findings CBC and BMP: 08/26/19 19:42 08/28/19 08:32 Abnormal Lab Findings: Abnormal Labs 08/26/19 08/26/19 08/26/19 19:42 19:42 21:28 WBC 11.9 H MCV 74 L MCH 25 L RDW 12.9 L [place] # 0.9 H Seg Neutrophils # 8.1 H Potassium 3.1 L Chloride 107.9 H Carbon Dioxide 19 L BUN Glucose 126 H POC Glucose ALT < 5 L Albumin 3.6 L Cholesterol LDL Cholesterol Direct Urine WBC (Auto) 26.0 H 08/27/19 08/27/19 08/27/19 03:19 05:47 07:47 WBC MCV MCH RDW [place] # Seg Neutrophils # Potassium Chloride Carbon Dioxide BUN Glucose POC Glucose 221 H 200 H ALT Albumin Cholesterol 243 H LDL Cholesterol Direct 185 H Urine WBC (Auto) 08/27/19 08/27/19 08/27/19 08:00 11:26 16:44 WBC MCV MCH RDW [place] # Seg Neutrophils # Potassium Chloride Carbon Dioxide BUN Glucose POC Glucose 137 H 132 H 133 H ALT Albumin Cholesterol LDL Cholesterol Direct Urine WBC (Auto) 08/27/19 08/28/19 08/28/19 23:15 07:43 08:32 WBC MCV MCH RDW [place] # Seg Neutrophils # Potassium Chloride Carbon Dioxide 17 L BUN 29 H Glucose 120 H POC Glucose 138 H 134 H ALT Albumin Cholesterol LDL Cholesterol Direct Urine WBC (Auto) 08/28/19 08/28/19 08/28/19 16:31 21:06 23:38 WBC MCV MCH RDW [place] # Seg Neutrophils # Potassium Chloride Carbon Dioxide BUN Glucose POC Glucose 110 H 160 H 163 H ALT Albumin Cholesterol LDL Cholesterol Direct Urine WBC (Auto) 08/29/19 08/29/19 04:40 12:55 WBC MCV MCH RDW [place] # Seg Neutrophils # Potassium Chloride Carbon Dioxide BUN Glucose POC Glucose 162 H 151 H ALT Albumin Cholesterol LDL Cholesterol Direct Urine WBC (Auto)
--- NOTE | 2019-08-29 16:56 | Progress Note ---
Subjective Date of service: 08/29/19 Principal diagnosis: Acute CVA Interval history: 78-year-old Monegasque speaking woman was brought to the emergency room for evaluation. Patient has history of hypertension, diabetes, hyperlipidemia, has not taken her medication in over 2 years or seen a physician. She was noted to have right-sided weakness and was aphasic and was brought to the emergency room by her family. Triage sheet stated that the boyfriend stated he is unable to care for the patient anymore. A review of systems unobtainable. Patient was found to have an acute CVA. Also Rt Hemiplegia (1) CVA (cerebral vascular accident) Neurology note reviewed CVA w/u in progress head CT shows left hemisphere acute infarct MRI brain shows large Left MCA territory stroke. 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 ECGs and telemetry reviewed - pt noted to have one bout of apparent paroxysmal atrial tachycardia, otherwise NSR. TTE reviewed. Obtain thyroid profile. Optimize BPs and HR - initiate PO lopressor. (2) Hypokalemia Improved Continue daily potassium supplements ?? UTI versus Pyuria Urine cultures no growth to date received 3 days of IV ceftriaxone Discontinue antibiotic (4) HTN (hypertension) Continue Losartan 25 mg po qd (5) DVT prophylaxis On Heparin and GI prophylaxis History Interval history: Patient seen and examined, resting comfortable, no new distress Hospitalist Physical - Physical exam Narrative exam: General appearance: Present: no acute distress, well-nourished - EENT Eyes: PERRL, EOM intact ENT: hearing intact, clear oral mucosa Ears: bilateral: normal - Neck Neck: supple, normal ROM - Respiratory Respiratory effort: normal Respiratory: bilateral: CTA - Breasts Breasts: normal - Cardiovascular Heart rate: 78 Rhythm: regular Heart Sounds: Present: S1 & S2. Absent: gallop, rub Extremities: pulses intact, No edema, normal color, Full ROM - Gastrointestinal General gastrointestinal: Present: soft, non-tender, non-distended, normal bowel sounds - Genitourinary Female genitourinary: normal - Integumentary Integumentary: clear, warm, dry - Musculoskeletal Musculoskeletal: right sided weakness - Neurologic Neurologic: moves all extremities - Psychiatric patient is nonverbal and does not follow simple commands Waiting for acute rehabilitation placement Objective - Constitutional Vitals: Vital Signs - 12hr 08/29/19 08/29/19 08/29/19 08:11 10:00 12:42 Temperature 98.2 F Pulse Rate 73 79 Respiratory 18 Rate Blood Pressure 152/80 149/67 O2 Sat by Pulse 99 Oximetry - Labs CBC & Chem 7: 08/26/19 19:42 08/28/19 08:32 Labs: Abnormal lab results 08/28/19 08/28/19 08/28/19 Range/Units 16:31 21:06 23:38 POC Glucose 110 H 160 H 163 H (70-105) 08/29/19 08/29/19 Range/Units 04:40 12:55 POC Glucose 162 H 151 H (70-105)
[2019-08-29] MEDS: ASPIRIN 300 MG RECT SUPP PR SCH (17:30)
[2019-08-29] MEDS: ENOXAPARIN 40 MG/0.4 ML INJ SUB-Q SCH (17:30)
[2019-08-29] MEDS: POTASSIUM CHLORIDE ER 20 MEQ TAB PO SCH (17:30)
[2019-08-29] MEDS: METOPROLOL TARTRATE 25 MG TAB PO SCH ×2 (17:30→22:01)
[2019-08-29] MEDS: cefTRIAXone/NS 1 GM/50 ML 1 GM/50 ML BAG IV SCH ×2 (17:31→20:35)
[2019-08-29] MEDS ORDERED: hydrALAZINE 20 MG/1 ML INJ IV PRN (19:06)
[2019-08-30] MEDS: INSULIN LISPRO 100 UNIT/ML SUB-Q SCH ×4 (03:30→17:00)
[2019-08-30] MEDS: METOPROLOL TARTRATE 25 MG TAB PO SCH ×2 (10:28→22:22)
[2019-08-30] MEDS: ENOXAPARIN 40 MG/0.4 ML INJ SUB-Q SCH (10:29)
[2019-08-30] MEDS: cefTRIAXone/NS 1 GM/50 ML 1 GM/50 ML BAG IV SCH (10:29)
[2019-08-30] MEDS: ASPIRIN 300 MG RECT SUPP PR SCH (10:29)
[2019-08-30] MEDS ORDERED: INSULIN LISPRO 100 UNIT/ML SUB-Q SCH (11:30)
--- NOTE | 2019-08-30 15:30 | Progress Note ---
Subjective Date of service: 08/30/19 Principal diagnosis: Acute CVA Interval history: 78-year-old Kyrgyz speaking woman was brought to the emergency room for evaluation. Patient has history of hypertension, diabetes, hyperlipidemia, has not taken her medication in over 2 years or seen a physician. She was noted to have right-sided weakness and was aphasic and was brought to the emergency room by her family. Triage sheet stated that the boyfriend stated he is unable to care for the patient anymore. A review of systems unobtainable. Patient was found to have an acute CVA. Also Rt Hemiplegia (1) CVA (cerebral vascular accident) Neurology note reviewed CVA w/u in progress head CT shows left hemisphere acute infarct MRI brain shows large Left MCA territory stroke. 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 ECGs and telemetry reviewed - pt noted to have one bout of apparent paroxysmal atrial tachycardia, otherwise NSR. TTE reviewed. Obtain thyroid profile. Optimize BPs and HR - initiate PO lopressor. (2) Hypokalemia Improved Continue daily potassium supplements ?? UTI versus Pyuria Urine cultures no growth to date received 3 days of IV ceftriaxone Discontinue antibiotic (4) HTN (hypertension) Continue Losartan 25 mg po qd (5) DVT prophylaxis On Heparin and GI prophylaxis History Interval history: Patient seen and examined, resting comfortable, no new distress Hospitalist Physical - Physical exam Narrative exam: General appearance: Present: no acute distress, well-nourished - EENT Eyes: PERRL, EOM intact ENT: hearing intact, clear oral mucosa Ears: bilateral: normal - Neck Neck: supple, normal ROM - Respiratory Respiratory effort: normal Respiratory: bilateral: CTA - Breasts Breasts: normal - Cardiovascular Heart rate: 78 Rhythm: regular Heart Sounds: Present: S1 & S2. Absent: gallop, rub Extremities: pulses intact, No edema, normal color, Full ROM - Gastrointestinal General gastrointestinal: Present: soft, non-tender, non-distended, normal bowel sounds - Genitourinary Female genitourinary: normal - Integumentary Integumentary: clear, warm, dry - Musculoskeletal Musculoskeletal: right sided weakness - Neurologic Neurologic: moves all extremities - Psychiatric patient is nonverbal and does not follow simple commands Waiting for acute rehabilitation placement Objective - Constitutional Vitals: Vital Signs - 12hr 08/30/19 08/30/19 08/30/19 07:28 10:00 11:04 Temperature 100.6 F H 99.6 F Pulse Rate 66 60 59 L Respiratory 18 16 Rate Blood Pressure 157/64 123/57 O2 Sat by Pulse 95 97 Oximetry - Labs CBC & Chem 7: 08/26/19 19:42 08/30/19 07:19 Labs: Abnormal lab results 08/30/19 08/30/19 08/30/19 Range/Units 06:45 07:19 07:40 Chloride 109.3 H (98-107) mmol/L Carbon Dioxide 16 L (22-30) mmol/L BUN 33 H (7-17) mg/dL Glucose 153 H (65-100) mg/dL POC Glucose 193 H 137 H (70-105) 08/30/19 Range/Units 11:52 Chloride (98-107) mmol/L Carbon Dioxide (22-30) mmol/L BUN (7-17) mg/dL Glucose (65-100) mg/dL POC Glucose 169 H (70-105)
[2019-08-31] MEDS: cefTRIAXone/NS 1 GM/50 ML 1 GM/50 ML BAG IV SCH (09:31)
[2019-08-31] MEDS: ASPIRIN EC 325 MG TAB PO SCH (09:31)
[2019-08-31] MEDS: INSULIN LISPRO 100 UNIT/ML SUB-Q SCH ×3 (09:32→17:39)
[2019-08-31] MEDS: ENOXAPARIN 40 MG/0.4 ML INJ SUB-Q SCH (09:32)
[2019-08-31] MEDS: METOPROLOL TARTRATE 25 MG TAB PO SCH ×2 (09:35→22:56)
--- NOTE | 2019-08-31 16:21 | Progress Note ---
Assessment and Plan / CVA (cerebral vascular accident) Neurology note reviewed CVA w/u in progress head CT shows left hemisphere acute infarct, MRI brain shows large Left MCA territory stroke. 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 ECGs and telemetry reviewed - pt noted to have one bout of apparent paroxysmal atrial tachycardia, otherwise NSR. TTE reviewed. Obtain thyroid profile. Optimize BPs and HR - initiated PO lopressor. / Hypokalemia Improved Continue daily potassium supplements ?? UTI versus Pyuria Urine cultures no growth to date received 3 days of IV ceftriaxone off antibiotic / HTN (hypertension) Continue Losartan 25 mg po qd and lopressor / DVT prophylaxis On Heparin and GI prophylaxis Waiting for acute rehabilitation placement Brief History 78-year-old [place]ic speaking woman was brought to the emergency room for evaluation. Patient has history of hypertension, diabetes, hyperlipidemia, has not taken her medication in over 2 years or seen a physician. She was noted to have right-sided weakness and was aphasic and was brought to the emergency room by her family. Triage sheet stated that the boyfriend stated he is unable to care for the patient anymore. A review of systems unobtainable. Patient was found to have an acute CVA. Also Rt Hemiplegia - need acute vs ROSA ISELA. Hospitalist Physical - Physical exam Narrative exam: General appearance: Present: no acute distress, well-nourished - EENT Eyes: PERRL, EOM intact ENT: hearing intact, clear oral mucosa Ears: bilateral: normal - Neck Neck: supple, normal ROM - Respiratory Respiratory effort: normal Respiratory: bilateral: CTA - Breasts Breasts: normal - Cardiovascular Heart rate: 78 Rhythm: regular Heart Sounds: Present: S1 & S2. Absent: gallop, rub Extremities: pulses intact, No edema, normal color, Full ROM - Gastrointestinal General gastrointestinal: Present: soft, non-tender, non-distended, normal bowel sounds - Genitourinary Female genitourinary: normal - Integumentary Integumentary: clear, warm, dry - Musculoskeletal Musculoskeletal: right sided weakness - Neurologic Neurologic: moves all extremities - Psychiatric patient is nonverbal and does not follow simple commands Subjective Date of service: 08/31/19 Principal diagnosis: Acute CVA Interval history: patient seen and examined Nonverbal, no acute issute, discussed with RN at bedside d/c pending on placement Objective - Constitutional Vitals: Vital Signs - 12hr 08/31/19 08/31/19 08/31/19 05:47 06:23 08:36 Temperature 101.8 F H 98.9 F Pulse Rate 60 64 Respiratory 16 Rate Blood Pressure 156/54 153/67 Blood Pressure [Left] O2 Sat by Pulse 99 96 Oximetry 08/31/19 08/31/19 08/31/19 09:35 15:20 15:24 Temperature 98.0 F Pulse Rate 64 82 81 Respiratory 16 16 Rate Blood Pressure 153/67 Blood Pressure 123/60 [Left] O2 Sat by Pulse 95 93 Oximetry - Labs CBC & Chem 7: 08/26/19 19:42 08/30/19 07:19 Labs: Abnormal lab results 08/30/19 08/31/19 08/31/19 Range/Units 17:21 08:47 12:10 POC Glucose 118 H 165 H 156 H (70-105)
[2019-09-01] MEDS: ASPIRIN EC 325 MG TAB PO SCH (09:37)
[2019-09-01] MEDS: ENOXAPARIN 40 MG/0.4 ML INJ SUB-Q SCH (09:37)
[2019-09-01] MEDS: METOPROLOL TARTRATE 25 MG TAB PO SCH ×2 (09:38→22:17)
[2019-09-01] MEDS: INSULIN LISPRO 100 UNIT/ML SUB-Q SCH ×3 (09:44→17:56)
--- NOTE | 2019-09-01 15:14 | Progress Note ---
Assessment and Plan / CVA (cerebral vascular accident) Neurology note reviewed CVA w/u in progress head CT shows left hemisphere acute infarct, MRI brain shows large Left MCA territory stroke. 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 ECGs and telemetry reviewed - pt noted to have one bout of apparent paroxysmal atrial tachycardia, otherwise NSR. TTE reviewed. Obtain thyroid profile. Optimize BPs and HR - initiated PO lopressor. / Hypokalemia Improved Continue daily potassium supplements ?? UTI versus Pyuria Urine cultures no growth to date received 3 days of IV ceftriaxone off antibiotic / HTN (hypertension) Continue Losartan 25 mg po qd and lopressor / DVT prophylaxis On Heparin and GI prophylaxis Waiting for acute rehabilitation placement Brief History 78-year-old [place] speaking woman was brought to the emergency room for evaluation. Patient has history of hypertension, diabetes, hyperlipidemia, has not taken her medication in over 2 years or seen a physician. She was noted to have right-sided weakness and was aphasic and was brought to the emergency room by her family. Triage sheet stated that the boyfriend stated he is unable to care for the patient anymore. A review of systems unobtainable. Patient was found to have an acute CVA. Also Rt Hemiplegia - need acute vs ROSA ISELA. Hospitalist Physical - Physical exam Narrative exam: General appearance: Present: no acute distress, well-nourished - EENT Eyes: PERRL, EOM intact ENT: hearing intact, clear oral mucosa Ears: bilateral: normal - Neck Neck: supple, normal ROM - Respiratory Respiratory effort: normal Respiratory: bilateral: CTA - Breasts Breasts: normal - Cardiovascular Heart rate: 78 Rhythm: regular Heart Sounds: Present: S1 & S2. Absent: gallop, rub Extremities: pulses intact, No edema, normal color, Full ROM - Gastrointestinal General gastrointestinal: Present: soft, non-tender, non-distended, normal bowel sounds - Genitourinary Female genitourinary: normal - Integumentary Integumentary: clear, warm, dry - Musculoskeletal Musculoskeletal: right sided weakness - Neurologic Neurologic: moves all extremities - Psychiatric patient is nonverbal and does not follow simple commands Subjective Date of service: 09/01/19 Principal diagnosis: Acute CVA Interval history: patient seen and examined Nonverbal, no acute issute, discussed with RN at bedside d/c pending on placement Objective - Constitutional Vitals: Vital Signs - 12hr 09/01/19 09/01/19 09/01/19 04:39 08:33 09:38 Temperature 98.4 F 98.3 F Pulse Rate 61 63 63 Respiratory 18 18 Rate Blood Pressure 143/61 144/61 144/61 O2 Sat by Pulse 95 97 Oximetry - Labs CBC & Chem 7: 08/26/19 19:42 08/30/19 07:19 Labs: Abnormal lab results 08/31/19 09/01/19 Range/Units 17:46 08:46 POC Glucose 323 H 161 H (70-105)
[2019-09-02] MEDS: METOPROLOL TARTRATE 25 MG TAB PO SCH ×2 (09:38→21:20)
[2019-09-02] MEDS: ENOXAPARIN 40 MG/0.4 ML INJ SUB-Q SCH (09:38)
[2019-09-02] MEDS: ASPIRIN EC 325 MG TAB PO SCH (09:39)
[2019-09-02] MEDS: INSULIN LISPRO 100 UNIT/ML SUB-Q SCH ×3 (09:40→18:14)
--- NOTE | 2019-09-02 14:33 | Discharge Summary ---
Providers - Providers Date of Admission: 08/27/19 00:27 Date of discharge: 09/03/19 Attending physician: TRINA MORALES 08/27/19 Consult to Physician [CONS] Routine Comment: Consulting Provider: RAJ RENEE Physician Instructions: Reason For Exam: cva 08/27/19 01:27 Occupational Therapy Evaluate and Treat [CONS] Routine Comment: Reason For Exam: Neuro deficits Physical Therapy Evaluation and Treat [CONS] Routine Comment: Reason For Exam: Neuro deficits 08/27/19 01:28 Speech Therapy Evaluation and Treat [CONS] Routine Reason For Exam: swallow eval Primary care physician: [employer] Hospitalization Condition: Stable Hospital course: 78-year-old [place] speaking woman was brought to the emergency room for evaluation. Patient has history of hypertension, diabetes, hyperlipidemia, has not taken her medication in over 2 years or seen a physician. She was noted to have right-sided weakness and was aphasic and was brought to the emergency room by her family. Triage sheet stated that the boyfriend stated he is unable to care for the patient anymore. A review of systems unobtainable. Patient was fo und to have an acute CVA. Also Rt Hemiplegia - need acute vs ROSA ISELA. But family willing to take patient home, so she was discharged with family with . Discharge diagnosis: / CVA (cerebral vascular accident) Neurology note reviewed CVA w/u in progress head CT shows left hemisphere acute infarct, MRI brain shows large Left MCA territory stroke. 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 ECGs and telemetry reviewed - pt noted to have one bout of apparent paroxysmal atrial tachycardia, otherwise NSR. TTE reviewed. Obtain thyroid profile. Optimize BPs and HR - initiated PO lopressor. / Hypokalemia Improved Continue daily potassium supplements ?? UTI versus Pyuria Urine cultures no growth to date received 3 days of IV ceftriaxone off antibiotic / HTN (hypertension) Continue lopressor 50 BID daily / DVT prophylaxis On Heparin and GI prophylaxis Disposition: home with Hospitalist Physical - Physical exam Narrative exam: General appearance: Present: no acute distress, well-nourished - EENT Eyes: PERRL, EOM intact ENT: hearing intact, clear oral mucosa Ears: bilateral: normal - Neck Neck: supple, normal ROM - Respiratory Respiratory effort: normal Respiratory: bilateral: CTA - Breasts Breasts: normal - Cardiovascular Heart rate: 78 Rhythm: regular Heart Sounds: Present: S1 & S2. Absent: gallop, rub Extremities: pulses intact, No edema, normal color, Full ROM - Gastrointestinal General gastrointestinal: Present: soft, non-tender, non-distended, normal bowel sounds - Genitourinary Female genitourinary: normal - Integumentary Integumentary: clear, warm, dry - Musculoskeletal Musculoskeletal: right sided weakness - Neurologic Neurologic: moves all extremities - Psychiatric patient is nonverbal and does not follow simple commands Disposition: [id number] [facility] Time spent for discharge: 34 minutes Core Measure Documentation - Palliative Care Palliative Care/ Comfort Measures: Not Applicable - Core Measures Any of the following diagnoses?: stroke Exam - Constitutional Vitals: Temp Pulse Resp BP Pulse Ox 97.6 F 47 L 16 133/53 97 09/02/19 03:43 09/02/19 12:04 09/02/19 08:41 09/02/19 12:04 09/02/19 12:04 Plan Activity: up only with assistance, fall precautions Weight Bearing Status: Non-Weight Bearing Diet: other (mechanical soft diet) Special Instructions: record daily BP diary Follow up with: PRIMARY CAREMD [Primary Care Provider] - 3-5 Days AUGUSTIN FLORES MD [Staff Physician] - 7 Days Prescriptions: AtorvaSTATin [Lipitor] 40 mg PO QHS #30 tablet Aspirin EC [Halfprin EC] 81 mg PO QDAY #30 tablet. Metoprolol [Lopressor TAB] 50 mg PO BID #60 tablet
[2019-09-02] MEDS ORDERED: ACETAMINOPHEN 325 MG TAB PO PRN (23:55)
[2019-09-03] MEDS: INSULIN LISPRO 100 UNIT/ML SUB-Q SCH (08:25)
[2019-09-03] MEDS: ASPIRIN EC 325 MG TAB PO SCH (09:44)
[2019-09-03] MEDS: ENOXAPARIN 40 MG/0.4 ML INJ SUB-Q SCH (09:44)
[2019-09-03] MEDS: METOPROLOL TARTRATE 25 MG TAB PO SCH (09:45)
[2019-09-03 09:46] VITALS: BP 173/64
--- NOTE | 2019-09-03 14:48 | Progress Note ---
Assessment and Plan / CVA (cerebral vascular accident) Neurology note reviewed CVA w/u in progress head CT shows left hemisphere acute infarct, MRI brain shows large Left MCA territory stroke. 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 ECGs and telemetry reviewed - pt noted to have one bout of apparent paroxysmal atrial tachycardia, otherwise NSR. TTE reviewed. Obtain thyroid profile. Optimize BPs and HR - initiated PO lopressor. / Hypokalemia Improved Continue daily potassium supplements ?? UTI versus Pyuria Urine cultures no growth to date received 3 days of IV ceftriaxone off antibiotic / HTN (hypertension) Continue Losartan 25 mg po qd and lopressor / DVT prophylaxis On Heparin and GI prophylaxis Waiting for acute rehabilitation placement Brief History 78-year-old [place]at[place] speaking woman was brought to the emergency room for evaluation. Patient has history of hypertension, diabetes, hyperlipidemia, has not taken her medication in over 2 years or seen a physician. She was noted to have right-sided weakness and was aphasic and was brought to the emergency room by her family. Triage sheet stated that the boyfriend stated he is unable to care for the patient anymore. A review of systems unobtainable. Patient was found to have an acute CVA. Also Rt Hemiplegia - need acute vs ROSA ISELA. Hospitalist Physical - Physical exam Narrative exam: General appearance: Present: no acute distress, well-nourished - EENT Eyes: PERRL, EOM intact ENT: hearing intact, clear oral mucosa Ears: bilateral: normal - Neck Neck: supple, normal ROM - Respiratory Respiratory effort: normal Respiratory: bilateral: CTA - Breasts Breasts: normal - Cardiovascular Heart rate: 78 Rhythm: regular Heart Sounds: Present: S1 & S2. Absent: gallop, rub Extremities: pulses intact, No edema, normal color, Full ROM - Gastrointestinal General gastrointestinal: Present: soft, non-tender, non-distended, normal bowel sounds - Genitourinary Female genitourinary: normal - Integumentary Integumentary: clear, warm, dry - Musculoskeletal Musculoskeletal: right sided weakness - Neurologic Neurologic: moves all extremities - Psychiatric patient is nonverbal and does not follow simple commands Subjective Date of service: 09/03/19 Principal diagnosis: Acute CVA Interval history: patient seen and examined Nonverbal, no acute issute, discussed with RN at bedside d/c pending on placement Objective - Constitutional Vitals: Vital Signs - 12hr 09/03/19 09/03/19 09/03/19 03:44 08:11 09:45 Temperature 97.7 F Pulse Rate 52 L 63 Pulse Rate [ 70 Right Radial] Respiratory 16 15 Rate Blood Pressure 99/70 173/64 O2 Sat by Pulse 99 Oximetry - Labs CBC & Chem 7: 08/26/19 19:42 08/30/19 07:19 Labs: Abnormal lab results 09/02/19 09/02/19 09/03/19 Range/Units 17:58 21:17 09:22 POC Glucose 114 H 235 H 172 H (70-105)
== END 2019-09-03 16:59 | disposition home or self-care (01) | DRG 65 ==
LOC: ED 17:07 → 4A 08-27 00:27
PROVIDERS: ADMIT Internal Medicine; ATTEND Internal Medicine
DX: I63.9 Cerebral infarction, unspecified (principal); G81.91 Hemiplegia, unspecified affecting right dominant side; N30.00 Acute cystitis without hematuria; E87.6 Hypokalemia; I10 Essential (primary) hypertension; E78.5 Hyperlipidemia, unspecified; E11.9 Type 2 diabetes mellitus without complications; E78.00 Pure hypercholesterolemia, unspecified; R47.01 Aphasia
CPT/HCPCS: 36415; 70450; 70544; 70547; 70551; 71045; 80048; 80061; 80076; 80307; 80320; 81001; 82962; 84439; 84443; 85025; 87086; 93005; 93010; 93306; G0378; A9270-GY; G0480; J0360; J0696; J1650; J1815; J2405; J3480